=== PATIENT | female | born 1935 | race Caucasian/White ===

== ENCOUNTER 2017-06-11 10:00 | Outpatient (RCR) | payer MEDICARE, OTHER ==
[~2017-06-11 10:00] MED LIST: ALLOPURINOL100 MG PO; ARMOUR THYROID60 MG PO; ASPIR-LOW81 MG PO; CLINDAMYCIN HC150 MG PO; D3-5050000 UNIT PO; HYDROXYUREA500 MG PO; METFORMIN HCL500 MG PO; METOPROLOL SUCC25 MG PO
== END 2017-07-05 ==
LOC: PT 10:00
PROVIDERS: ATTEND Family Medicine
DX: M25.572 Pain in left ankle and joints of left foot (principal); M62.81 Muscle weakness (generalized)
CPT/HCPCS: 97110 ×2; G8982; G8983

== ENCOUNTER → 2018-04-08 | Day surgery (SDC) | payer MEDICARE, OTHER ==
[2018-04-07 12:16] LABS: BASOPHILS # (AUTO) 0.2 (0.0-0.1); BASOPHILS % 1.9 % (0.0-1.0); EOSINOPHILS # (AUTO) 0.4 (0.0-0.4); EOSINOPHILS % 4.5 % (0.0-6.0); LYMPHOCYTES # (AUTO) 1.1 (1.0-3.2); LYMPHOCYTES % 11.2 % (18.0-39.1); MEAN CORPUSCULAR HEMOGLOBIN 33.2 pg (28-32); MEAN CORPUSCULAR HGB CONC 33.3 g/dL (31-35); MEAN CORPUSCULAR VOLUME 99.7 fL (81-99); MONOCYTES # (AUTO) 0.6 (0.2-0.8); MONOCYTES % 6.3 % (4.4-11.3); NEUTROPHILS # (AUTO) 7.1 (2.1-6.9); NEUTROPHILS % 73.9 % (38.7-80.0); PLATELET COUNT 515 x10e3/uL (140-360); RED BLOOD COUNT 3.61 x10e6/uL (3.6-5.1); RED CELL DISTRIBUTION WIDTH 15.6 % (11.7-14.4)
[2018-04-07 15:59] LABS: EOSINOPHILS % (MANUAL) 6 % (0-7); HYPOCHROMASIA SLIGHT; LYMPHOCYTES % (MANUAL) 7 % (19-48); MONOCYTES % (MANUAL) 5 % (3.4-9.0); NEUTROPHILS % (MANUAL) 82 % (40-74); PLATELET ESTIMATE MODERATELY INCREASED; PLATELET MORPHOLOGY COMMENT NORMAL; RBC MORPHOLOGY COMMENT NORMAL
[~2018-04-08] MED LIST changes: +ELIQUIS PO; +MIDAZOLAM HCL 2 MG/2 ML VIAL ONE; +PEPCID20 MG PO; +PROPOFOL IV EMULSION 10 MG/ML 20 ML VIAL ONE; +VIT B12 PO; +VIT D3 PO
[2018-04-08 09:20] VITALS: BP 146/72
== END | disposition home or self-care (01) ==
LOC: OR 06:37
PROVIDERS: ATTEND Internal Medicine Gastroenterology
DX: R19.7 Diarrhea, unspecified (principal); K57.30 Diverticulosis of large intestine without perforation or abscess without bleeding; K64.8 Other hemorrhoids; Z71.3 Dietary counseling and surveillance; E66.3 Overweight; I48.91 Unspecified atrial fibrillation; E11.9 Type 2 diabetes mellitus without complications; Z88.6 Allergy status to analgesic agent; Z88.1 Allergy status to other antibiotic agents; Z88.8 Allergy status to other drugs, medicaments and biological substances; Z01.810 Encounter for preprocedural cardiovascular examination; Z01.812 Encounter for preprocedural laboratory examination; Z79.02 Long term (current) use of antithrombotics/antiplatelets; Z79.82 Long term (current) use of aspirin; Z68.25 Body mass index [BMI] 25.0-25.9, adult; Z80.0 Family history of malignant neoplasm of digestive organs
CPT/HCPCS: 36415; 45380; 85025; 93005; J2250

== ENCOUNTER → 2018-06-02 | Day surgery (SDC) | payer MEDICARE, OTHER ==
[2018-06-01 16:55] LABS: BASOPHILS # (AUTO) 0.2 (0.0-0.1); BASOPHILS % 1.8 % (0.0-1.0); EOSINOPHILS # (AUTO) 0.4 (0.0-0.4); EOSINOPHILS % 4.4 % (0.0-6.0); HEMATOCRIT 34.2 % (34.2-44.1); HEMOGLOBIN 11.2 g/dL (12.0-16.0); LYMPHOCYTES # (AUTO) 0.9 (1.0-3.2); LYMPHOCYTES % 10.6 % (18.0-39.1); MEAN CORPUSCULAR HEMOGLOBIN 33.2 pg (28-32); MEAN CORPUSCULAR HGB CONC 32.7 g/dL (31-35); MEAN CORPUSCULAR VOLUME 101.5 fL (81-99); MONOCYTES # (AUTO) 0.4 (0.2-0.8); MONOCYTES % 5.2 % (4.4-11.3); NEUTROPHILS # (AUTO) 6.5 (2.1-6.9); NEUTROPHILS % 76.7 % (38.7-80.0); PLATELET COUNT 395 x10e3/uL (140-360); RED BLOOD COUNT 3.37 x10e6/uL (3.6-5.1); RED CELL DISTRIBUTION WIDTH 14.8 % (11.7-14.4)
--- NOTE | 2018-06-01 17:17 | Diagnostic Imaging Report ---
EXAMINATION: CHEST 2 VIEWS INDICATION: ^PER PROTOCOL ^[id number] ^1700 ^PRE ADMIT COMPARISON: 04/02/2015 FINDINGS: PA and lateral views TUBES and LINES: None. LUNGS: Lungs are well inflated. There is no evidence of pneumonia or pulmonary edema. PLEURA: No pleural effusion or pneumothorax. HEART AND MEDIASTINUM: The cardiomediastinal silhouette is unremarkable. BONES AND SOFT TISSUES: No acute osseous lesion. Soft tissues are unremarkable. UPPER ABDOMEN: No free air under the diaphragm. IMPRESSION: No acute thoracic abnormality. Signed by: Dr. Brenton Arciniega MD on 06/01/2018 5:13 PM
[~2018-06-02] MED LIST changes: +ACETAMINOPHEN 1000 MG/100 ML 100 ML IV ONE; +BACITRACIN 50,000 UNIT VIAL ONE; +CEFAZOLIN SOD 1 GM VIAL ONE; +FENTANYL CITRATE/PF 100MCG/2 ML INJ ONE; +HYDROMORPHONE 2MG/ML 2 MG/ML ML ONE; +KETOROLAC TROMETHAMINE 30 MG/ML VIAL ONE; +LABETALOL HCL 5 MG/ML 20ML VIAL ONE; +LIDOCAINE HCL 2% LOCAL INJ 5 ML SDV VIAL INJ ONE; -MIDAZOLAM HCL 2 MG/2 ML VIAL ONE; +ONDANSETRON HCL INJ 2 MG/ML VIAL ONE; +SEVOFLURANE INHAL SOLN 250 ML PEN BTL ONE
--- OUTSIDE RECORDS SUMMARY | 2018-06-02 10:49 | XMS REPORT ---
Author Author [facility] Address Unknown Phone Unavailable Care Team Providers Care Side Puller Name Role Phone DORA GARCIA Unavailable Unavailable Problems This patient has no known problems. Allergies, Adverse Reactions, Alerts This patient has no known allergies or adverse reactions. Medications This patient has no known medications. Results Test Description Test Time Test Comments Text Results Atomic Results Result Comments CHEST 2 VIEWS 2018-06-01 17:12:00 [place] [address] Patient Name: LAVERNE SANTACRUZ MR #: [id number] : 1935 Age/Sex: 82/F Req #: [id number] Adm Physician: Ordered by: DORA GARCIA MD Report #: [id number] Location: OR Room/Bed: Procedure: [id number] DX/CHEST 2 VIEWS Exam Date: 06/01/18 Exam Time: 1700 REPORT STATUS: Signed EXAMINATION: CHEST 2 VIEWS INDICATION: PER PROTOCOL [id number] 1700 PRE ADMIT COMPARISON: 04/02/2015 FINDINGS: PA and lateral views TUBES and LINES: None. LUNGS: Lungs are well inflated. There is no evidence of pneumonia or pulmonary edema. PLEURA: No pleural effusion or pneumothorax. HEART AND MEDIASTINUM: The cardiomediastinal silhouette is unremarkable. BONES AND SOFT TISSUES: No acute osseous lesion. Soft tissues are unremarkable. UPPER ABDOMEN: No free air under the diaphragm. IMPRESSION: No acute thoracic abnormality. Signed by: Dr. Brenton Arciniega MD on 06/01/2018 5:13 PM Dictated By: BRENTON ARCINIEGA MD 12 Transcribed By: ANGÉLICA on 06/01/181712 COPY TO: DORA GARCIA MD
[2018-06-02 15:20] VITALS: BP 149/87
--- NOTE | 2018-06-03 15:40 | Operative Report ---
DATE OF PROCEDURE: June 02, 2018 PREOPERATIVE DIAGNOSIS: Septic left prepatellar bursitis. POSTOPERATIVE DIAGNOSIS: Septic left prepatellar bursitis. PROCEDURE: Irrigation and sharp debridement, left knee prepatellar bursa. INDICATIONS: The patient is an 82-year-old lady who is on chronic Eliquis. She had a direct blow to the front of the knee. She developed a hematoma. This appears to have become infected. We have discussed the findings and options. We have started her on oral antibiotics yesterday in the clinic. We plan on outpatient wound care. She states she understands and wishes to proceed. DESCRIPTION OF PROCEDURE: The patient was brought to the operating room. She was placed under general anesthetic. Her left lower extremity was prepped and draped in a sterile manner. A preoperative time out was performed. An incision was made directly over the left knee swollen prepatellar bursa. A hematoma that was showing signs of purulence was immediately decompressed. A large area of the subcutaneous tissue was debrided. Necrotic tissue was sharply excised with a scalpel. The wound was thoroughly irrigated with a shower-tip pulsatile lavage. The wound was packed with iodoform gauze. She was wrapped with a sterile dressing. She was extubated and transported to the recovery room in stable condition. Blood loss was less than 10 mL. All needle and sponge counts were correct. Job#: [id number]
== END | disposition home or self-care (01) ==
LOC: OR 10:46
PROVIDERS: ATTEND Specialist
DX: M70.42 Prepatellar bursitis, left knee (principal); I48.91 Unspecified atrial fibrillation; Z88.6 Allergy status to analgesic agent; Z88.8 Allergy status to other drugs, medicaments and biological substances; Z01.810 Encounter for preprocedural cardiovascular examination; Z01.812 Encounter for preprocedural laboratory examination; Z79.02 Long term (current) use of antithrombotics/antiplatelets; Z91.81 History of falling
CPT/HCPCS: 11042; 36415; 71046; 85025; 87071; 87075; 87205; J0131; J0690; J1170; J1885; J2001; J2704; J3490; J2405

== ENCOUNTER → 2018-06-04 | Outpatient (RCR) | payer MEDICARE, OTHER ==
[~2018-06-04] MED LIST changes: -ACETAMINOPHEN 1000 MG/100 ML 100 ML IV ONE; -BACITRACIN 50,000 UNIT VIAL ONE; -CEFAZOLIN SOD 1 GM VIAL ONE; -FENTANYL CITRATE/PF 100MCG/2 ML INJ ONE; -HYDROMORPHONE 2MG/ML 2 MG/ML ML ONE; -KETOROLAC TROMETHAMINE 30 MG/ML VIAL ONE; -LABETALOL HCL 5 MG/ML 20ML VIAL ONE; -LIDOCAINE HCL 2% LOCAL INJ 5 ML SDV VIAL INJ ONE; +LIDOCAINE/PRILOCAINE 2.5-2.5% KIT ONE; -ONDANSETRON HCL INJ 2 MG/ML VIAL ONE; -PROPOFOL IV EMULSION 10 MG/ML 20 ML VIAL ONE; -SEVOFLURANE INHAL SOLN 250 ML PEN BTL ONE
== END ==
LOC: WCC 11:43
PROVIDERS: ATTEND Internal Medicine Infectious Disease
DX: T88.9XXA Complication of surgical and medical care, unspecified, initial encounter (principal); T81.89XA Other complications of procedures, not elsewhere classified, initial encounter; I48.91 Unspecified atrial fibrillation; E03.9 Hypothyroidism, unspecified

== ENCOUNTER 2018-07-02 12:53 | Outpatient (RCR) | payer MEDICARE, OTHER ==
[~2018-07-02 12:53] MED LIST changes: +METHYLERGONOVINE MALEATE 0.2 MG/ML AMP ONE; +MINERAL OIL/PETROLAT/GLYCERI 6OZ BTL ONE
== END 2018-07-05 ==
LOC: WCC 12:53
PROVIDERS: ATTEND Internal Medicine Infectious Disease
DX: T81.89XA Other complications of procedures, not elsewhere classified, initial encounter (principal); T88.9XXA Complication of surgical and medical care, unspecified, initial encounter; I48.91 Unspecified atrial fibrillation; E03.9 Hypothyroidism, unspecified
CPT/HCPCS: 97605 ×4; 99212 ×2; 99213 ×4; J2210

== ENCOUNTER 2018-08-02 10:47 | Outpatient (RCR) | payer MEDICARE, OTHER ==
[~2018-08-02 10:47] MED LIST changes: -METHYLERGONOVINE MALEATE 0.2 MG/ML AMP ONE; -MINERAL OIL/PETROLAT/GLYCERI 6OZ BTL ONE
== END 2018-08-05 ==
LOC: WCC 10:47
PROVIDERS: ATTEND Internal Medicine Infectious Disease
DX: T81.89XA Other complications of procedures, not elsewhere classified, initial encounter (principal); T88.9XXA Complication of surgical and medical care, unspecified, initial encounter; I48.91 Unspecified atrial fibrillation; E03.9 Hypothyroidism, unspecified

== ENCOUNTER 2018-08-06 12:48 | Outpatient (RCR) | payer MEDICARE, OTHER ==
[~2018-08-06 12:48] MED LIST changes: -LIDOCAINE/PRILOCAINE 2.5-2.5% KIT ONE
== END 2018-09-02 ==
LOC: WCC 12:48
PROVIDERS: ATTEND Internal Medicine Infectious Disease
DX: T88.9XXA Complication of surgical and medical care, unspecified, initial encounter (principal); T81.89XA Other complications of procedures, not elsewhere classified, initial encounter; E03.9 Hypothyroidism, unspecified; I48.91 Unspecified atrial fibrillation

== ENCOUNTER → 2019-05-09 | Outpatient (CLI) | payer MEDICARE, OTHER ==
--- NOTE | 2019-05-09 14:10 | Diagnostic Imaging Report ---
TECHNIQUE: Magnetic resonance imaging of the LEFT foot and ankle was performed WITHOUT injected contrast. COMPARISON: None available. HISTORY: Left ankle pain FINDINGS: LIGAMENTS: Medial Complex: Deltoid is intact. Lateral Complex: Tibiofibular, talofibular, and calcaneofibular ligaments intact. TENDONS: Medial: Posterior tibial and flexor tendons intact. Lateral: Peroneal tendons intact. Anterior: Anterior tibial and extensor tendons intact. Achilles: Achilles tendon intact. BONES: No focal or infiltrative bone marrow replacing abnormality. No acute fracture or osteonecrosis. JOINTS: Cartilage: Ankle joint is unremarkable. Mild first MTP joint arthrosis Other: Fluid within the joints is within physiologic limits. SOFT TISSUES: Plantar fascial thickening with enthesophyte formation. The intermetatarsal spaces are clear. No neuroma or intermetatarsal bursitis. The plantar plates are intact. IMPRESSION: No acute osseous or soft tissue abnormality. Chronic plantar fascial thickening and plantar enthesophyte. Signed by: Dr. Yo Ogden M.D. on 05/09/2019 2:06 PM
== END ==
LOC: MRI 10:33
PROVIDERS: ATTEND Family Medicine
DX: M25.572 Pain in left ankle and joints of left foot (principal)

== ENCOUNTER → 2019-09-09 | Outpatient (CLI) | payer MEDICARE, OTHER ==
[~2019-09-09] MED LIST changes: +AZITHROMYCIN250 MG PO; +BENZONATATE100 MG PO; +OMEPRAZOLE MAGN20 MG PO; +TAMIFLU75 MG PO
== END ==
LOC: RAD 16:32
PROVIDERS: ATTEND Family Medicine
DX: R60.0 Localized edema (principal)
CPT/HCPCS: 93971

== ENCOUNTER → 2020-12-21 | Outpatient (CLI) | payer MEDICARE, OTHER | LOC: MRI 13:46 | PROVIDERS: ATTEND Family Medicine | DX: R41.81 Age-related cognitive decline (principal); M54.16 Radiculopathy, lumbar region | CPT/HCPCS: 70551; 72148 ==

== ENCOUNTER → 2021-12-25 | Outpatient (CLI) | payer MEDICARE, OTHER | LOC: DX 12:05 | PROVIDERS: ATTEND Internal Medicine Hematology & Oncology | DX: R06.02 Shortness of breath (principal) | CPT/HCPCS: 71046 ==

== ENCOUNTER → 2022-02-06 | Outpatient (CLI) | payer MEDICARE, OTHER ==
[~2022-02-06] MED LIST changes: +IOPAMIDOL 370 MG/ML 100 ML INFUS..BTL INJ ONE; +SODIUM CHLORIDE 0.9% 500ML 500 ML ONE
[2022-02-06 12:43] LABS: CREATININE, SERUM 1.11 mg/dL (0.57-1.11)
== END ==
LOC: CT 11:25
PROVIDERS: ATTEND Family Medicine
DX: R10.0 Acute abdomen (principal); J90 Pleural effusion, not elsewhere classified; R16.1 Splenomegaly, not elsewhere classified; I51.7 Cardiomegaly
CPT/HCPCS: 36415; 74177; 82565; 84520; 96360; J7040; Q9967